=== PATIENT | female | born 1965 | race Caucasian/White ===

== ENCOUNTER 2019-12-26 07:34 | Inpatient (IN) | payer BC, OTHER ==
[2019-12-26] VITALS (8 sets, daily range): BP systolic 111–132; BP diastolic 72–89
[~2019-12-26] VITALS: Ht 157.5 cm; Wt 86.4 kg
[2019-12-26 08:25] LABS: PARTIAL THROMBOPLASTIN TIME 23 SECONDS (22-32)
[2019-12-26 08:27] LABS: BASOPHILS % (AUTO) 0.6 % (0-1); EOSINOPHILS % (AUTO) 0 % (0-6); HEMATOCRIT 40.7 % (35.0-45.0); HEMOGLOBIN 13.9 g/dl (12.0-16.0); LYMPHOCYTES # (AUTO) 0.7 X10'3 (1.1-4.8); LYMPHOCYTES % (AUTO) 16.1 % (21-51); MEAN CORPUSCULAR HEMOGLOBIN 34.6 PG (27.0-31.0); MEAN CORPUSCULAR HGB CONC 34.2 g/dL (33.0-36.5); MEAN CORPUSCULAR VOLUME 101.2 FL (78-98); MEAN PLATELET VOLUME 8.9 FL (7.4-10.4); MONOCYTES # (AUTO) 0.5 X10'3 (0-0.9); MONOCYTES % (AUTO) 11.2 % (2-12); NEUTROPHILS % (AUTO) 72.1 % (42-75); PLATELET COUNT 157 X10'3 (140-440); RED BLOOD COUNT 4.03 X10'6 (4.20-5.60); RED CELL DISTRIBUTION WIDTH 13.5 % (11.5-14.5); WHITE BLOOD COUNT 4.1 X10'3 (4.5-11.0)
[2019-12-26 08:32] LABS: ALANINE AMINOTRANSFERASE 106 U/L (12-78); ALBUMIN 4.4 G/DL (3.4-5.0); ALBUMIN/GLOBULIN RATIO 1.2 (1.1-1.5); ALKALINE PHOSPHATASE 62 IU/L (46-116); ANION GAP 17 (8-16); ASPARTATE AMINO TRANSFERASE 68 U/L (10-37); BILIRUBIN,TOTAL 2.3 MG/DL (0.1-1.0); BLOOD UREA NITROGEN 34 MG/DL (7-18); BUN/CREATININE RATIO 33.3 (6.6-38.0); CALCIUM 10.9 MG/DL (8.5-10.1); CHLORIDE 98 MMOL/L (99-107); CREATININE 1.02 MG/DL (0.40-0.90); GLUCOSE 279 MG/DL (70-104); POTASSIUM 3.5 MMOL/L (3.5-5.1); SODIUM 141 MMOL/L (135-145); TOTAL CARBON DIOXIDE 26.3 MMOL/L (24-32); eGFR 57 ML/MIN
[2019-12-26] MEDS ORDERED: pantoprazole 40 MG vial IV ONE (08:50)
[2019-12-26] MEDS ORDERED: octreotide inj. 1,250 MCG in normal saline 250ml IV soln 250 ML IV SCH (08:50)
[2019-12-26] MEDS: normal saline 1000ml 1,000 ML IV SCH ×2 (09:28→19:53)
[2019-12-26] MEDS ORDERED: acetaminophen 325mg tablet PO PRN ×2 (09:30)
[2019-12-26] MEDS ORDERED: dextrose 50%-water 50ml dispensing syringe IV PRN (09:30)
[2019-12-26] MEDS ORDERED: magnesium 4gm in 100ml NS 100 ML IV PRN (09:30)
[2019-12-26] MEDS ORDERED: LORazepam 2 mg/ml vial IV PRN (09:30)
[2019-12-26] MEDS ORDERED: potassium Cl 20 mEq SR tablet PO PRN (09:30)
[2019-12-26] MEDS ORDERED: magnesium 2GM in 50ml NS 50 ML IV PRN (09:30)
[2019-12-26] MEDS ORDERED: octreotide inj. 1,250 MCG in normal saline 250ml IV soln 243.75 ML IV SCH (09:30)
[2019-12-26] MEDS ORDERED: ondansetron/PF 4mg/2ml inj IV PRN (09:30)
[2019-12-26] MEDS ORDERED: potassium CL 10mEq/100ml bag 100 ML IV PRN ×2 (09:30)
--- NOTE | 2019-12-26 10:55 | NUR ---
PATIENT TAKEN TO GI LAB IN STABLE CONDITION. EMESIS X 1 PRIOR TO LEAVING FOR TEST. IV SITES X 2 INTACT. SANDOSTATIN DRIP IN PROGRESS AT 5 ML/HR ON PUMP.
[2019-12-26] MEDS ORDERED: NO HOME MEDS (10:57)
[2019-12-26] MEDS ORDERED: pantoprazole 40MG/NS 100ML BAG 100 ML IV SCH (11:00)
[2019-12-26] MEDS ORDERED: MIDAZolam 5mg/5ml vial ONE (11:03)
[2019-12-26] MEDS ORDERED: fentaNYL/PF 50MCG/1 ML 2ML syringe ONE (11:03)
[2019-12-26] MEDS ORDERED: LIDOcaine Viscous 15ml cup ONE (11:04)
--- NOTE | 2019-12-26 11:59 | NUR ---
PT STILL AT GI LAB
[2019-12-26 13:36] LABS: BASOPHILS % (AUTO) 0.4 % (0-1); EOSINOPHILS % (AUTO) 0 % (0-6); HEMATOCRIT 38.2 % (35.0-45.0); LYMPHOCYTES # (AUTO) 0.5 X10'3 (1.1-4.8); LYMPHOCYTES % (AUTO) 13.3 % (21-51); MEAN CORPUSCULAR HGB CONC 33.9 g/dL (33.0-36.5); MEAN CORPUSCULAR VOLUME 100.2 FL (78-98); MEAN PLATELET VOLUME 8.8 FL (7.4-10.4); MONOCYTES # (AUTO) 0.5 X10'3 (0-0.9); NEUTROPHILS # (AUTO) 2.5 X10'3 (1.8-7.7); NEUTROPHILS % (AUTO) 72.3 % (42-75); PLATELET COUNT 118 X10'3 (140-440); RED BLOOD COUNT 3.82 X10'6 (4.20-5.60); RED CELL DISTRIBUTION WIDTH 13.7 % (11.5-14.5); WHITE BLOOD COUNT 3.5 X10'3 (4.5-11.0)
[2019-12-26] MEDS: pantoprazole 40MG/NS 100ML BAG 100 ML IV SCH ×3 (15:20→20:52)
--- NOTE | 2019-12-26 18:28 | NUR ---
Problems reprioritized. Patient report given, questions answered & plan of care reviewed with ANASTASIA Booker.
--- NOTE | 2019-12-26 18:29 | NUR ---
Patient in room PCU 3016. I have received report from Shreyas OCONNOR and had the opportunity to ask questions and assume patient care.
[2019-12-26] MEDS: K and/or MAG REPLACEMENT MC SCH (19:13)
[2019-12-26] MEDS: temazepam 15mg capsule PO PRN (20:57)
[2019-12-27] MEDS: pantoprazole 40MG/NS 100ML BAG 100 ML IV SCH ×2 (01:10→07:32)
[2019-12-27 02:00] VITALS: BP 128/83
[2019-12-27] MEDS: normal saline 1000ml 1,000 ML IV SCH (05:22)
[2019-12-27 06:00] VITALS: BP 127/87
[2019-12-27 06:12] LABS: ALANINE AMINOTRANSFERASE 89 U/L (12-78); ALBUMIN 3.6 G/DL (3.4-5.0); ALBUMIN/GLOBULIN RATIO 1.3 (1.1-1.5); ALKALINE PHOSPHATASE 40 IU/L (46-116); ANION GAP 7 (8-16); ASPARTATE AMINO TRANSFERASE 90 U/L (10-37); BILIRUBIN,TOTAL 1.4 MG/DL (0.1-1.0); BLOOD UREA NITROGEN 18 MG/DL (7-18); BUN/CREATININE RATIO 21.7 (6.6-38.0); CALCIUM 9.1 MG/DL (8.5-10.1); CHLORIDE 104 MMOL/L (99-107); CHOL/HDL RATIO 2.6 (0.00-4.99); CHOLESTEROL 187 MG/DL (0-200); CREATININE 0.83 MG/DL (0.40-0.90); GLUCOSE 141 MG/DL (70-104); HDL CHOLESTEROL 72 MG/DL (35-60); LDL CHOLESTEROL 96 MG/DL (50-100); MAGNESIUM 1.2 MG/DL (1.5-2.4); POTASSIUM 3.1 MMOL/L (3.5-5.1); SODIUM 143 MMOL/L (135-145); TOTAL CARBON DIOXIDE 31.8 MMOL/L (24-32); TOTAL PROTEIN 6.3 G/DL (6.4-8.2); TRIGLYCERIDES 96 MG/DL (20-135); eGFR 72 ML/MIN
--- NOTE | 2019-12-27 06:39 | NUR ---
Problems reprioritized. Patient report given, questions answered & plan of care reviewed with Raegan OCONNOR.
[2019-12-27 07:12] LABS: BASOPHILS % (AUTO) 0.9 % (0-1); HEMATOCRIT 32.2 % (35.0-45.0); LYMPHOCYTES % (AUTO) 30.1 % (21-51); MEAN CORPUSCULAR HEMOGLOBIN 34.7 PG (27.0-31.0); MEAN CORPUSCULAR HGB CONC 34.2 g/dL (33.0-36.5); MEAN CORPUSCULAR VOLUME 101.3 FL (78-98); MONOCYTES # (AUTO) 0.3 X10'3 (0-0.9); MONOCYTES % (AUTO) 9.5 % (2-12); NEUTROPHILS % (AUTO) 58.5 % (42-75); PLATELET COUNT 97 X10'3 (140-440); RED BLOOD COUNT 3.18 X10'6 (4.20-5.60); RED CELL DISTRIBUTION WIDTH 13.4 % (11.5-14.5); WHITE BLOOD COUNT 3.4 X10'3 (4.5-11.0)
[2019-12-27] MEDS: atenolol 25mg tablet PO SCH (07:33)
[2019-12-27] MEDS: magnesium Cl slow-release 64mg tablet PO PRN ×2 (07:33→16:48)
[2019-12-27] MEDS: K and/or MAG REPLACEMENT MC SCH ×2 (07:36→19:39)
[2019-12-27] MEDS: pantoprazole 40mg Tablet.DR PO SCH (10:21)
[2019-12-27 11:00] VITALS: BP 110/72
[2019-12-27] MEDS: potassium Cl 20 mEq SR tablet PO PRN ×2 (12:01→16:48)
[2019-12-27 13:31] LABS: H PYLORI ANTIBODY NEGATIVE (Neg)
[2019-12-27 14:17] LABS: HEMATOCRIT 31.3 % (35.0-45.0); HEMOGLOBIN 10.6 g/dl (12.0-16.0); MEAN CORPUSCULAR HEMOGLOBIN 34.5 PG (27.0-31.0); MEAN CORPUSCULAR HGB CONC 33.7 g/dL (33.0-36.5); MEAN CORPUSCULAR VOLUME 102.3 FL (78-98); MEAN PLATELET VOLUME 8.8 FL (7.4-10.4); PLATELET COUNT 98 X10'3 (140-440); RED BLOOD COUNT 3.06 X10'6 (4.20-5.60); RED CELL DISTRIBUTION WIDTH 13.4 % (11.5-14.5); WHITE BLOOD COUNT 4.5 X10'3 (4.5-11.0)
[2019-12-27 15:00] VITALS: BP 124/78
--- NOTE | 2019-12-27 17:28 | NUR ---
PAGER ID: [phone] MESSAGE: Julio Cesar. Christine [place] [id number] wants to know if she will discharge today. Please call tele [phone] Raegan
[2019-12-27 18:00] VITALS: BP 137/80
--- NOTE | 2019-12-27 18:53 | NUR ---
Gave report to Ade OCONNOR.
--- NOTE | 2019-12-27 18:55 | NUR ---
Patient in room PCU 3016. I have received report from Raegan OCONNOR and had the opportunity to ask questions and assume patient care.
--- NOTE | 2019-12-27 20:00 | NUR ---
Although EMAR shows that patient got two doses of K-dur today, per day shift report she received all three doses and per the patient she received three separate doses so will not give any additional dose tonight as she has actually been replaced in full.
[2019-12-27 22:00] VITALS: BP 103/78
[2019-12-27] MEDS: temazepam 15mg capsule PO PRN (22:51)
[2019-12-28 02:00] VITALS: BP 106/63
[2019-12-28 06:00] VITALS: BP 107/71
--- NOTE | 2019-12-28 06:19 | NUR ---
Problems reprioritized. Patient report given, questions answered & plan of care reviewed with Veronica OCONNOR.
--- NOTE | 2019-12-28 06:19 | NUR ---
Patient in room PCU 3016. I have received report from Ade OCONNOR and had the opportunity to ask questions and assume patient care.
[2019-12-28] MEDS: pantoprazole 40mg Tablet.DR PO SCH (07:30)
[2019-12-28] MEDS: atenolol 25mg tablet PO SCH (07:32)
[2019-12-28] MEDS: K and/or MAG REPLACEMENT MC SCH (07:34)
[2019-12-28] MEDS ORDERED: LORazepam 1 MG tablet PO PRN (09:30)
[2019-12-28] MEDS ORDERED: LORazepam 2 mg/ml vial IV PRN (09:30)
[2019-12-28 11:00] VITALS: BP 128/81
[2019-12-28 12:41] LABS: HEMATOCRIT 32.5 % (35.0-45.0); HEMOGLOBIN 11.1 g/dl (12.0-16.0); MEAN CORPUSCULAR HEMOGLOBIN 34.8 PG (27.0-31.0); MEAN CORPUSCULAR HGB CONC 34.1 g/dL (33.0-36.5); MEAN CORPUSCULAR VOLUME 102.1 FL (78-98); PLATELET COUNT 104 X10'3 (140-440); RED BLOOD COUNT 3.18 X10'6 (4.20-5.60); RED CELL DISTRIBUTION WIDTH 13.5 % (11.5-14.5); WHITE BLOOD COUNT 3.3 X10'3 (4.5-11.0)
--- NOTE | 2019-12-28 13:11 | NUR ---
Sent a page to Dr Tay ty hemogram results PAGER ID: [phone] MESSAGE: Veronica OCONNOR [phone] Brittney Childress, patient agreed to lab draw, H/H came back stable
[2019-12-28] MEDS ORDERED: PANT40TA4 PO (13:24)
[2019-12-28] MEDS ORDERED: ATEN-168 PO (13:24)
--- NOTE | 2019-12-28 14:31 | NUR ---
stable for discharge per MD orders, all discharge instructions reviewed with patient and all questions answered, new prescriptions called into [facility] pharmacy in [facility], tele monitor and PIV discontinued, all belongings collected and sent with the patient, left the unit at 1422 in wheelchair with RN to private vehicle.
[2019-12-30] MEDS ORDERED: LORazepam 2 mg/ml vial IV PRN (09:30)
[2019-12-30] MEDS ORDERED: LORazepam 1 MG tablet PO PRN (09:30)
== END 2019-12-28 14:22 | disposition home or self-care (01) | DRG 378 ==
LOC: ER 07:35 → ED HOLD 09:28 → PCU 3S 15:37
PROVIDERS: ADMIT Internal Medicine; ATTEND Internal Medicine
PROC: 0D758ZZ Dilation of Esophagus, Via Natural or Artificial Opening Endoscopic (ICD-10-PCS; principal; 2019-12-26)
DX: K27.0 Acute peptic ulcer, site unspecified, with hemorrhage (principal); D62 Acute posthemorrhagic anemia; K29.71 Gastritis, unspecified, with bleeding; F10.20 Alcohol dependence, uncomplicated; Y90.9 Presence of alcohol in blood, level not specified; E87.6 Hypokalemia; E83.42 Hypomagnesemia; F32.9 Major depressive disorder, single episode, unspecified; R79.89 Other specified abnormal findings of blood chemistry; K22.2 Esophageal obstruction; K44.9 Diaphragmatic hernia without obstruction or gangrene
CPT/HCPCS: 36415; 43227; 43249; 71045; 80053; 80061; 83735; 84484; 85025; 85027; 85610; 85730; 86677; 87081; 93005; 96365; 97161; 97530; 99152; 99153; 99291; A4620; C1726; C9113; G0378; J2250; J2354; J3010; J7030; J7040; J7050